=== PATIENT | female | born 1995 | race Two or more races ===

== ENCOUNTER 2017-12-23 16:00 | Emergency (ER) | payer MEDICAID ==
[2017-12-23 16:28] VITALS: BP 128/56
--- NOTE | 2017-12-23 16:40 | EDM.PDOC ---
ED HPI GENERAL MEDICAL PROBLEM - General Chief Complaint: Lower Extremity Injury/Pain Stated Complaint: Calf Pain Time Seen by Provider: 12/23/17 16:13 Source of Information: Reports: Patient, Family, RN, RN Notes Reviewed History Limitations: Reports: No Limitations - History of Present Illness INITIAL COMMENTS - FREE TEXT/NARRATIVE: Patient presents to the ED at [facility] with concerns of a possible blood clot in the right calf. Patient states she started feeling calf pain about 2 days ago. The pain she sharp and stabbing and does not radiate. She is able to walk, but there is some pain. No SOB. No chest pain. Patient has a family history of blood clots. She does not recall any injury or trauma to the leg. 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 Psychiatric History: Reports: Anxiety, Depression Hematologic History: Reports: Anemia - Past Surgical History HEENT Surgical History: Reports: Oral Surgery Social & Family History - Family History Family Medical History: Noncontributory - Tobacco Use Smoking Status *Q: Never Smoker Years of Tobacco use: 3 Packs/Tins Daily: 1 - Recreational Drug Use Recreational Drug Use: No Review of Systems - Review of Systems Review Of Systems: See Below Constitutional: Denies: Chills, Fever, Weakness Respiratory: Denies: Shortness of Breath, Cough Cardiovascular: Denies: Chest Pain, Edema, Palpitations Musculoskeletal: Reports: Muscle Pain, Other (right calf pain) Skin: Reports: No Symptoms Neurological: Denies: Numbness, Paresthesia, Tingling ED EXAM, GENERAL - Physical Exam Exam: See Below Exam Limited By: No Limitations General Appearance: Alert, No Apparent Distress Respiratory/Chest: No Respiratory Distress, Lungs Clear, Normal Breath Sounds Cardiovascular: Normal Peripheral Pulses, Regular Rate, Rhythm, No Edema Peripheral Pulses: 2+: Posterior Tibial (L), Posterior Tibial (R), Dorsalis Pedis (L), Dorsalis Pedis (R) Extremities: No Pedal Edema, Normal Capillary Refill, Leydi's Sign, Other (mild right calf tenderness). No: Limited Range of Motion Neurological: Alert, Oriented Skin Exam: Warm, Dry, Intact, Normal Color Course - Vital Signs Last Recorded V/S: Last Vital Signs Temp 37.3 C 12/23/17 16:05 Pulse 85 12/23/17 16:05 Resp 16 12/23/17 16:05 BP 128/56 L 12/23/17 16:05 Pulse Ox 99 12/23/17 16:05 - Orders/Labs/Meds Labs: Laboratory Tests 12/23/17 Range/Units 16:45 D-Dimer, Quantitative 0.84 H (<=0.58) mg/LFEU Departure - Departure Time of Disposition: 17:07 Disposition: Home, Self-Care 01 Condition: Good Clinical Impression: Right calf pain, Elevated d-dimer - Discharge Information Referrals: Gregg Cotto MD [Primary Care Provider] - Forms: ED Department Discharge, ED Return to Work/School Form Additional Instructions: 1. Stay well hydrated and rest 2. Recommend getting an ultrasound to r/o DVT for sure 3. Patient verbalized understanding 4. Call with any questions/concerns - Problem List Review Problem List Initiated/Reviewed/Updated: Yes - Assessment/Plan Assessment:: Right Calf Pain Elevated D-Dimer Plan: Labs discussed with patient. Recommend the patient needs and ultrasound to r/o DVT since she has an elevated D-dimer. Patient verbalized understanding. She can wait until and have it done here, or she can be seen at another ER that has Ultrasound services.
== END 2017-12-23 17:30 | disposition home or self-care (01) ==
LOC: VM.ED 16:00
DX: M79.661 Pain in right lower leg (principal); R79.1 Abnormal coagulation profile; K21.9 Gastro-esophageal reflux disease without esophagitis; F32.9 Major depressive disorder, single episode, unspecified; F41.9 Anxiety disorder, unspecified; Z88.5 Allergy status to narcotic agent; Z79.899 Other long term (current) drug therapy
CPT/HCPCS: 36415; 85379; 99283

== ENCOUNTER 2019-09-02 18:02 | Emergency (ER) | payer MEDICAID ==
[2019-09-02 18:23] VITALS: BP 135/95; PULSE 97
[2019-09-02] MEDS ORDERED: Take Home: Ondansetron 4 MG Tab.DIS, 2 Tab Pack PO ONE (18:24)
--- NOTE | 2019-09-04 01:31 | EDM.PDOC ---
ED HPI GENERAL MEDICAL PROBLEM - General Chief Complaint: ENT Problem Stated Complaint: THROAT PAIN Time Seen by Provider: 09/02/19 18:34 Source of Information: Reports: Patient History Limitations: Reports: No Limitations - History of Present Illness INITIAL COMMENTS - FREE TEXT/NARRATIVE: Pt. presents to ER with complaints of nausea and vomiting. She underwent tonsillectomy on 08/31/19. She is currently taking oxycodone liquid for the pain. She states that she has been nauseated and has vomited a couple of times. She states that after this, she had increased discomfort in the back of her throat. Denies any active bleeding. No fever or chills. 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 Psychiatric History: Reports: Anxiety, Depression Hematologic History: Reports: Anemia - Past Surgical History HEENT Surgical History: Reports: Oral Surgery, Tonsillectomy Social & Family History - Family History Family Medical History: Noncontributory - Tobacco Use Smoking Status *Q: Never Smoker ED ROS GENERAL - Review of Systems Review Of Systems: See Below Constitutional: Reports: No Symptoms HEENT: Reports: Throat Pain Respiratory: Reports: No Symptoms Cardiovascular: Reports: No Symptoms Endocrine: Reports: No Symptoms GI/Abdominal: Reports: Nausea, Vomiting : Reports: No Symptoms Musculoskeletal: Reports: No Symptoms Skin: Reports: No Symptoms Neurological: Reports: No Symptoms Psychiatric: Reports: No Symptoms Hematologic/Lymphatic: Reports: No Symptoms Immunologic: Reports: No Symptoms ED EXAM, GENERAL - Physical Exam Exam: See Below Exam Limited By: No Limitations General Appearance: Alert, WD/WN, No Apparent Distress Throat/Mouth: Normal Inspection, Normal Oropharynx, Normal Voice, No Airway Compromise, Other (Pt. unable to open mouth to allow visualization of the hypopharynx.) Head: Atraumatic, Normocephalic Respiratory/Chest: No Respiratory Distress, Lungs Clear, Normal Breath Sounds, No Accessory Muscle Use, Chest Non-Tender Cardiovascular: Normal Peripheral Pulses, Regular Rate, Rhythm, No Edema, No Gallop, No JVD, No Rub GI/Abdominal: Normal Bowel Sounds, Soft, Non-Tender, No Organomegaly, No Distention, No Mass Course - Vital Signs Last Recorded V/S: Last Vital Signs Temp 37.5 C 09/02/19 18:16 Pulse 97 09/02/19 18:16 Resp BP 135/95 H 09/02/19 18:16 Pulse Ox 97 09/02/19 18:16 - Orders/Labs/Meds Meds: Medications Discontinued Medications Generic Name Dose Route Start Last Admin Trade Name Tabitha PRN Reason Stop Dose Admin Ondansetron HCl 2 packet 09/02/19 18:24 09/02/19 18:34 Take Home: Ondansetron Odt 4 Mg, 2 Tab Pack PO 09/02/19 18:25 2 packet ONETIME ONE Administration Departure - Departure Time of Disposition: 18:34 Disposition: Home, Self-Care 01 Clinical Impression: Post-operative nausea and vomiting - Discharge Information Instructions: Ondansetron oral dissolving tablet, Tonsillectomy, Adult, Care After Referrals: Gregg Cotto MD [Primary Care Provider] - Forms: ED Department Discharge Additional Instructions: Home to rest Zofran 4mg 1 tab every 6 hours as needed for nausea Take the zofran before you start taking the pain medication again recheck in clinic in 7-10 days Sepsis Event Note - Evaluation Sepsis Screening Result: No Definite Risk - Assessment/Plan Plan: Home to rest Zofran 4mg 1 tab every 6 hours as needed for nausea Take the zofran before you start taking the pain medication again recheck in clinic in 7-10 days
== END 2019-09-02 18:34 | disposition home or self-care (01) ==
LOC: VM.ED 18:02
DX: J95.89 Other postprocedural complications and disorders of respiratory system, not elsewhere classified (principal); R11.2 Nausea with vomiting, unspecified; Z88.5 Allergy status to narcotic agent
CPT/HCPCS: 99283; A9270-GY

== ENCOUNTER 2019-09-03 17:53 | Emergency (ER) | payer MEDICAID ==
[2019-09-03 18:02] VITALS: BP 131/83; PULSE 99
[2019-09-03] MEDS ORDERED: Sodium Chloride 0.9% 1,000 ML IV ONE (18:03)
--- NOTE | 2019-09-03 18:37 | EDM.PDOC ---
ED HPI GENERAL MEDICAL PROBLEM - General Chief Complaint: ENT Problem Time Seen by Provider: 09/03/19 17:55 Source of Information: Reports: Patient, EMS History Limitations: Reports: No Limitations - History of Present Illness INITIAL COMMENTS - FREE TEXT/NARRATIVE: Pt. underwent tonsillectomy on Saturday (08-31-2019) at [facility] in [place] by Dr. Beard. Pt. was at work tonight and developed acute onset of post op bleeding. EMS was summoned. She states that she has been vomiting and feels that she has not been drinking adequately as well. Pt. was able to manage her own airway and is spitting the blood into an emesis bag on arrival to ED. Pt. states that she feels anxious. Denies any shortness of breath or trouble breathing. 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 Psychiatric History: Reports: Anxiety, Depression Hematologic History: Reports: Anemia - Past Surgical History HEENT Surgical History: Reports: Oral Surgery, Tonsillectomy Social & Family History - Family History Family Medical History: Noncontributory - Tobacco Use Smoking Status *Q: Unknown Ever Smoked ED ROS GENERAL - Review of Systems Review Of Systems: See Below Constitutional: Reports: No Symptoms HEENT: Reports: Other (post op tonsillar bleeding) Respiratory: Reports: No Symptoms Cardiovascular: Reports: No Symptoms Endocrine: Reports: No Symptoms GI/Abdominal: Reports: Nausea : Reports: No Symptoms Musculoskeletal: Reports: No Symptoms Skin: Reports: No Symptoms Neurological: Reports: No Symptoms Psychiatric: Reports: Anxiety Hematologic/Lymphatic: Reports: No Symptoms Immunologic: Reports: No Symptoms ED EXAM, GENERAL - Physical Exam Exam: See Below General Appearance: Alert, WD/WN, No Apparent Distress Throat/Mouth: Other (Patient is barely able to open her mouth. I am able to visualize the upper postoperative area but no active bleeding is noted from this area. Pt. appears to be bleeding quite briskly given the amount of bloody saliva she is expectorating. She will not tolerate examination with a mirror of tongue depressor.) Head: Atraumatic, Normocephalic Neck: Normal Inspection, Lymphadenopathy (L), Lymphadenopathy (R), Tender Lateral Respiratory/Chest: No Respiratory Distress, Lungs Clear, Normal Breath Sounds, No Accessory Muscle Use Cardiovascular: Normal Peripheral Pulses, Regular Rate, Rhythm, No Edema, No Gallop, No JVD, No Murmur, No Rub Extremities: Normal Inspection, Normal Range of Motion, Non-Tender Neurological: Alert, Oriented, CN II-XII Intact, No Motor/Sensory Deficits Psychiatric: Anxious Skin Exam: Warm, Dry, Intact, Normal Color Course - Vital Signs Last Recorded V/S: Last Vital Signs Temp 36.9 C 09/03/19 17:53 Pulse 99 09/03/19 17:53 Resp 16 09/03/19 17:53 BP 131/83 09/03/19 17:53 Pulse Ox - Orders/Labs/Meds Orders: Active Orders 24 hr Category Date Time Status COMPREHENSIVE METABOLIC PN,CMP [CHEM] Stat Lab 09/03/19 18:20 Received Sodium Chloride 0.9% [Normal Saline] 1,000 ml Med 09/03/19 18:03 Active IV .BOLUS Medication Orders Sodium Chloride (Normal Saline) 1,000 mls @ 1,000 mls/hr IV .BOLUS ONE Stop: 09/03/19 19:02 Last Admin: 09/03/19 18:08 Dose: 1,000 mls/hr Labs: Laboratory Tests 09/03/19 09/03/19 Range/Units 18:20 18:20 WBC 16.4 H (4.0-10.0) x10^3/uL RBC 5.23 (4.00-5.50) x10^6/uL Hgb 13.3 (12.0-16.0) g/dL Hct 39.9 (33.0-47.0) % MCV 76.3 L (78.0-93.0) fL MCH 25.4 L (26.0-32.0) pg MCHC 33.3 (32.0-36.0) g/dL RDW Coeff of Samra 13.3 (10.0-15.0) % Plt Count 418 H (130-400) x10^3/uL Neut % (Auto) 70.2 (50.0-80.0) % Lymph % (Auto) 22.3 L (25.0-50.0) % Collin % (Auto) 6.7 (2.0-11.0) % Eos % (Auto) 0.5 (0.0-4.0) % Baso % (Auto) 0.3 (0.2-1.2) % PT 10.3 (10.0-12.8) SEC INR 0.9 L (2.0-3.5) Meds: Medications Generic Name Dose Route Start Last Admin Trade Name Freq PRN Reason Stop Dose Admin Sodium Chloride 1,000 mls @ 1,000 mls/hr 09/03/19 18:03 09/03/19 18:08 Normal Saline IV 09/03/19 19:02 1,000 mls/hr .BOLUS ONE Administration Departure - Departure Time of Disposition: 18:40 Disposition: DC/Tfer to [facility] 02 Clinical Impression: Hemorrhage following tonsillectomy - Discharge Information Referrals: Gregg Cotto MD [Primary Care Provider] - Forms: ED Department Discharge, Interfacility Transfer [facility] Sepsis Event Note - Evaluation Sepsis Screening Result: No Definite Risk - Focused Exam Vital Signs: Vital Signs Temp Pulse Resp BP 09/03/19 17:53 36.9 C 99 16 131/83 Date Exam was Performed: 09/03/19 Time Exam was Performed: 18:45 - Problem List Review Problem List Initiated/Reviewed/Updated: Yes - My Orders Last 24 Hours: My Active Orders 09/03/19 18:03 Sodium Chloride 0.9% [Normal Saline] 1,000 ml IV .BOLUS 09/03/19 18:20 COMPREHENSIVE METABOLIC PN,CMP [CHEM] Stat - Assessment/Plan Last 24 Hours: My Active Orders 09/03/19 18:03 Sodium Chloride 0.9% [Normal Saline] 1,000 ml IV .BOLUS 09/03/19 18:20 COMPREHENSIVE METABOLIC PN,CMP [CHEM] Stat Plan: I spoke with our nurse date puller to see if he had access to a fiberoptic laryngoscope which he does not. Subsequently contacted [facility] call in [place] and spoke with Dr. Glynn, the patient's surgeon, who graciously accepted the patient in transfer. She will be kept NPO. Pt. was started on maintenance normal saline. She received IV zofran from paramedics while enroute to the hospital. All questions were answered.
[2019-09-03 18:45] LABS: CHLORIDE,CL 98 mmol/L (98-107); SODIUM,NA 140 mmol/L (136-145)
[2019-09-03 18:49] LABS: ANION GAP 15.4 mmol/L (10-20)
== END 2019-09-03 19:00 | disposition short-term general hospital (02) ==
LOC: VM.ED 17:53
DX: J95.830 Postprocedural hemorrhage of a respiratory system organ or structure following a respiratory system procedure (principal); Z88.5 Allergy status to narcotic agent; Y83.6 Removal of other organ (partial) (total) as the cause of abnormal reaction of the patient, or of later complication, without mention of misadventure at the time of the procedure
CPT/HCPCS: 36415; 80053; 85025; 85610; 96360; 99285-25; J7030

== ENCOUNTER 2020-11-05 11:56 | Emergency (ER) | payer MEDICAID ==
[2020-11-05 12:07] VITALS: BP 146/95; PULSE 89
[2020-11-05] MEDS ORDERED: Ketorolac 30 MG/ML SDV IVPUSH ONE (12:17)
[2020-11-05] MEDS ORDERED: Metoclopramide 10 MG/2 ML SDV IVPUSH ONE (12:17)
[2020-11-05] MEDS ORDERED: Lactated Ringers 1,000 ML IV ONE (12:17)
[2020-11-05] MEDS ORDERED: diphenhydrAMINE 50 MG/ML SDV IVPUSH ONE (12:17)
[2020-11-05] MEDS ORDERED: Sodium Chloride 0.9% 10 ML Syringe FLUSH PRN (12:17)
--- NOTE | 2020-11-05 12:25 | EDM.PDOC ---
ED HPI GENERAL MEDICAL PROBLEM - General Chief Complaint: Gastrointestinal Problem Stated Complaint: headache Time Seen by Provider: 11/05/20 12:10 Source of Information: Reports: Patient History Limitations: Reports: No Limitations - History of Present Illness INITIAL COMMENTS - FREE TEXT/NARRATIVE: Patient comes emergency department today from home with complaints of a headac he. This patient has had a headache from morning until night for the last 6 days. 6 days ago she woke up in the morning with a pounding throbbing sensation throughout the entirety tentorium of her head. This is becoming quite concerning to her as she is typically not a headache or a migraine type person. She has not had headaches in 6 months. Typically she gets a headache when she is not been wearing her glasses. Last night and today she has photophobia phonophobia as well as nausea and vomiting. She has no abdominal pain. No fever no chills. No chest pain no shortness of breath or difficulty breathing. No weakness dizziness lightheadedness. No syncope. No blurred vision or double vision. No peripheral floaters in her vision. No neck pain. No paresthesias of her upper or lower extremities. No change in the functionality of her upper or lower extremities. No recent falls or head trauma. She did not have a thunderclap type headache. She has no neck stiffness or neck pain or neck pain. NO COVID symptoms no COVID exposure. Headache Pain Score (Numeric/FACES): 8 - Related Data Allergies Allergy/AdvReac Type Severity Reaction Status Date / Time codeine Allergy Vomiting Verified 11/05/20 12:11 Home Meds: Home Meds . 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 - Physical Exam Exam: See Below Exam Limited By: No Limitations General Appearance: Alert, WD/WN, No Apparent Distress Eye Exam: Bilateral Eye: EOMI, PERRL Ears: Normal External Exam, Normal TMs Nose: Normal Inspection Throat/Mouth: Normal Inspection, Normal Oropharynx, Normal Voice Head Exam: Atraumatic, Normocephalic Neck: Normal Inspection, Supple, Non-Tender, Full Range of Motion, Other (No nuchal rigidity) Respiratory/Chest: No Respiratory Distress, Lungs Clear, Normal Breath Sounds, No Accessory Muscle Use, Chest Non-Tender Cardiovascular: Normal Peripheral Pulses, Regular Rate, Rhythm GI/Abdominal: Normal Bowel Sounds, Soft, Non-Tender (Female) Exam: Deferred Rectal (Female) Exam: Deferred Neuro Exam (Abbreviated): Alert, Oriented, CN II-XII Intact, Normal Cognition, Normal Gait, Normal Reflexes, No Motor/Sensory Deficits DTR: 2+: Bicep (R), Bicep (L), Patella (R), Patella (L), Achilles (R), Achilles (L) Back Exam: Normal Inspection, Full Range of Motion Extremities: Normal Inspection, Normal Range of Motion, Non-Tender, No Pedal Edema, Normal Capillary Refill Psychiatric: Normal Affect, Normal Mood Skin Exam: Warm, Dry, Intact, Normal Color, No Rash Course - Vital Signs Last Recorded V/S: Last Vital Signs Temp 97.9 F 11/05/20 12:00 Pulse 89 11/05/20 12:00 Resp 14 11/05/20 12:00 BP 146/95 H 11/05/20 12:00 Pulse Ox 98 11/05/20 12:00 - Orders/Labs/Meds Orders: Active Orders 24 hr Category Date Time Status Peripheral IV Insertion Adult [OM.PC] Stat Oth 11/05/20 12:17 Ordered Meds: Medications Discontinued Medications Generic Name Dose Route Start Last Admin Trade Name Tabitha PRN Reason Stop Dose Admin Diphenhydramine HCl 25 mg 11/05/20 12:17 11/05/20 12:30 Diphenhydramine 50 Mg/Ml Sdv IVPUSH 11/05/20 12:18 25 mg ONETIME ONE Administration Lactated Ringer's 1,000 mls @ 999 mls/hr 11/05/20 12:17 11/05/20 12:28 Ringers, Lactated IV 11/05/20 13:17 999 mls/hr ONETIME ONE Administration Ketorolac Tromethamine 30 mg 11/05/20 12:17 11/05/20 12:28 Ketorolac 30 Mg/Ml Sdv IVPUSH 11/05/20 12:18 30 mg ONETIME ONE Administration Metoclopramide HCl 10 mg 11/05/20 12:17 11/05/20 12:32 Metoclopramide 10 Mg/2 Ml Sdv IVPUSH 11/05/20 12:18 10 mg ONETIME ONE Administration Sodium Chloride 10 ml 11/05/20 12:17 Sodium Chloride 0.9% 10 Ml Syringe FLUSH ASDIRECTED PRN Keep Vein Open - Radiology Interpretation Free Text/Narrative:: CT of the head per radiology shows no acute findings normal CT of the head. - Re-Assessments/Exams Free Text/Narrative Re-Assessment/Exam: 11/05/20 12:24 As this patient has worse headache of her life and typically is not a migraine or headache person a CT scan of the head was ordered. IV LR 1 L wide open. Ketorolac 30 mg IV push. Benadryl 25 mg IV push. Reglan [address] normal. After the above therapy the patient had 100% resolution of her complete symptomology presentation. She feels quite a bit better. We will have her go home and rest today decrease stimulation to her brain from lights sounds and irritations. Plenty of fluids. Tylenol for pain. Recheck if any problems she is understanding this and her questions were answered. Departure - Departure Time of Disposition: 13:24 Disposition: Home, Self-Care 01 Clinical Impression: Migraine Qualifiers: Migraine type: unspecified Status migrainosus presence: without status migrainosus Intractability: not intractable Qualified Code(s): G43.909 - Migraine, unspecified, not intractable, without status migrainosus - Discharge Information Instructions: Migraine Headache, [id number], Pain Medicine Instructions, [id number] Referrals: Gregg Cotto MD [Primary Care Provider] - Forms: ED Department Discharge Additional Instructions: Home rest as much as possible. Rest your brain from lights sounds and stimulation. Make sure and drink plenty of fluids over the next few days. Tylenol as needed sparingly for headache. Return to the ED if new or worsening symptoms. Follow up with PCP in the next 4-6 days if any concerns. Sepsis Event Note (ED) - Evaluation Sepsis Screening Result: No Definite Risk - Focused Exam Vital Signs: Vital Signs Temp Pulse Resp BP Pulse Ox 11/05/20 12:00 97.9 F 89 14 146/95 H 98 - My Orders Last 24 Hours: My Active Orders 11/05/20 12:17 Peripheral IV Insertion Adult [OM.PC] Stat - Assessment/Plan Last 24 Hours: My Active Orders 11/05/20 12:17 Peripheral IV Insertion Adult [OM.PC] Stat
--- NOTE | 2020-11-05 13:25 | CT ---
[id number] CT/CT Head WO IV EXAM: CT Head WO IV CLINICAL DATA: WORST HEADACHE EVER. COMPARISON STUDY: None FINDINGS: No intracranial hemorrhage, extra-axial fluid collection, mass, or acute ischemia. No hydrocephalus. Calvarium intact. Mild paranasal sinus mucosal thickening. IMPRESSION: Normal examination of the brain. David Kinney MD 11/05/20 [id number] Thank you for allowing us to participate in the care of your patient.
== END 2020-11-05 13:34 | disposition home or self-care (01) ==
LOC: VM.ED 11:56
DX: G43.909 Migraine, unspecified, not intractable, without status migrainosus (principal); Z88.5 Allergy status to narcotic agent
CPT/HCPCS: 70450; 96374; 96375; 99284; 99284-25; J1200; J1885; J2765; J7120

== ENCOUNTER 2020-11-16 07:30 | Emergency (ER) | payer MEDICAID ==
[2020-11-16] MEDS ORDERED: HYDROmorphone 0.5 MG/0.5 ML Syringe IV ONE ×2 (08:13→10:24)
[2020-11-16] MEDS ORDERED: Lactated Ringers 1,000 ML IV ONE (08:13)
[2020-11-16] MEDS ORDERED: diphenhydrAMINE 50 MG/ML SDV IVPUSH ONE (08:13)
[2020-11-16] MEDS ORDERED: Ondansetron 4 MG/2 ML SDV IV ONE (08:13)
[2020-11-16] MEDS ORDERED: Sodium Chloride 0.9% 10 ML Syringe FLUSH PRN (08:13)
--- NOTE | 2020-11-16 08:19 | EDM.PDOC ---
ED HPI GENERAL MEDICAL PROBLEM - General Chief Complaint: Abdominal Pain Stated Complaint: ABDOMINAL PAIN Time Seen by Provider: 11/16/20 07:45 Source of Information: Reports: Patient History Limitations: Reports: No Limitations - History of Present Illness INITIAL COMMENTS - FREE TEXT/NARRATIVE: Patient comes emergency department today from home with complaints of nausea and abdominal pain. This patient for the past couple of days has been nauseated and vomiting. Last night starting in the middle the night about 3:00 she developed abdominal pain and continued to be nauseated and vomiting. She has been unable to keep anything down at home. She does complain of chills but no documented fever. No chest pain no shortness of breath or difficulty breathing. No cough or congestion. No loss of taste or smell. She has had some loose stools and diarrhea at home. She has generalized abdominal pain throughout her abdomen which waxes and wanes on its own. She does complain of urinary frequency but no dysuria or hematuria. No flank pain. She has had no surgeries on her abdomen in the past. No Covid exposure no Covid symptoms. She did take the morning-after pill yesterday although she threw up immediately following her medication. She was also recently started on medications for migraines as well as hypertension she has tried to take these last 2 days but everything that she eats she throws up. Right Abdomen Pain Score (Numeric/FACES): 9 - Related Data Allergies Allergy/AdvReac Type Severity Reaction Status Date / Time codeine Allergy Vomiting Verified 11/16/20 08:09 Home Meds: Home Meds Acetaminophen/HYDROcodone [Hensel 325-5 MG] 1 tab PO Q6HR PRN #12 tablet 11/16/20 [Rx] Ondansetron [Ondansetron ODT] 4 mg PO Q6H PRN #12 tab.rapdis 11/16/20 [Rx] Past Medical History - Past Health History Medical/Surgical History: Denies Medical/Surgical History Gastrointestinal History: Reports: GERD Genitourinary History: Reports: Other (See Below) Other Genitourinary History: Yeast/vaginal infection 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 ED EXAM, GI/ABD - Physical Exam Exam: See Below Exam Limited By: No Limitations General Appearance: Alert, WD/WN, Obese Eyes: Bilateral: EOMI Ears: Normal External Exam Nose: Normal Inspection Throat/Mouth: No: Normal Inspection (Oral mucosa is dry. ) Head: Atraumatic, Normocephalic Neck: Normal Inspection, Supple, Non-Tender, Full Range of Motion Respiratory/Chest: No Respiratory Distress, Lungs Clear, Normal Breath Sounds, No Accessory Muscle Use, Chest Non-Tender Cardiovascular: Normal Peripheral Pulses, Regular Rate, Rhythm, No Murmur, Tachycardia GI/Abdominal Exam: Normal Bowel Sounds, Soft, Guarding (RUQ and positive murphys sign. ), Tender (Generalized tenderness with referred pain to the RUQ. ). No: Distended, Rigid, Rebound (Female) Exam: Deferred Rectal (Female) Exam: Deferred Back Exam: Normal Inspection. No: CVA Tenderness (L), CVA Tenderness (R) Extremities: Normal Inspection, Normal Range of Motion, Non-Tender, No Pedal Edema, Normal Capillary Refill Neurological: Alert, Oriented, Normal Cognition, No Motor/Sensory Deficits Psychiatric: Normal Affect, Normal Mood Skin Exam: Warm, Dry, Intact, Normal Color, No Rash Lymphatic: No Adenopathy Course - Vital Signs Last Recorded V/S: Last Vital Signs Temp 99.4 F 11/16/20 07:40 Pulse 109 H 11/16/20 07:40 Resp 16 11/16/20 07:40 BP 155/90 H 11/16/20 07:40 Pulse Ox 98 11/16/20 07:40 - Orders/Labs/Meds Orders: Active Orders 24 hr Category Date Time Status Sodium Chloride 0.9% [Saline Flush] Med 11/16/20 08:13 Active 10 ml FLUSH ASDIRECTED PRN Peripheral IV Insertion Adult [OM.PC] Stat Oth 11/16/20 08:12 Ordered Medication Orders Sodium Chloride (Sodium Chloride 0.9% 10 Ml Syringe) 10 ml FLUSH ASDIRECTED PRN PRN Reason: Keep Vein Open Labs: Laboratory Tests 11/16/20 11/16/20 11/16/20 Range/Units 07:58 08:29 08:29 WBC 12.5 H (4.0-10.0) x10^3/uL RBC 5.56 H (4.00-5.50) x10^6/uL Hgb 14.5 (12.0-16.0) g/dL Hct 42.4 (33.0-47.0) % MCV 76.3 L (78.0-93.0) fL MCH 26.1 (26.0-32.0) pg MCHC 34.2 (32.0-36.0) g/dL RDW Coeff of Samra 13.2 (10.0-15.0) % Plt Count 337 D (130-400) x10^3/uL Neut % (Auto) 85.9 H (50.0-80.0) % Lymph % (Auto) 7.3 L (25.0-50.0) % [place] % (Auto) 5.7 (2.0-11.0) % Eos % (Auto) 0.9 (0.0-4.0) % Baso % (Auto) 0.2 (0.2-1.2) % Sodium 141 (136-145) mmol/L Potassium 4.1 (3.5-5.1) mmol/L Chloride 103 (98-107) mmol/L Carbon Dioxide 27 (21-32) mmol/L Anion Gap 15.1 H (5-15) mmol/L BUN 8 (7-18) mg/dL Creatinine 0.8 (0.55-1.02) mg/dL Est Cr Clr Drug Dosing 78.56 mL/min Estimated GFR (MDRD) > 60 Glucose 148 H (74-106) mg/dL Lactic Acid (0.4-2.0) mmol/L Calcium 9.0 (8.5-10.1) mg/dL Corrected Calcium 9.40 (8.5-10.1) mg/dL Magnesium 1.7 L (1.8-2.4) mg/dL Total Bilirubin 0.5 (0.2-1.0) mg/dL AST 12 L (15-37) U/L ALT 33 (14-59) U/L Alkaline Phosphatase 77 (46-116) U/L C-Reactive Protein 2.9 H (<=0.9) mg/dL Total Protein 8.1 (6.4-8.2) g/dL Albumin 3.5 (3.4-5.0) g/dL Globulin 4.6 Albumin/Globulin Ratio 0.76 Lipase 92 (73-393) U/L Urine Color (YELLOW) Urine Appearance (CLEAR) Urine pH (5.0-8.0) Ur Specific [place] Urine Protein (NEGATIVE) mg/dL Urine Glucose (UA) (NEGATIVE) mg/dL Urine Ketones (NEGATIVE) mg/dL Urine Occult Blood (NEGATIVE) Urine Nitrite (NEGATIVE) Urine Bilirubin (NEGATIVE) Urine Urobilinogen (0.2) EU/dL Ur Leukocyte Esterase (NEGATIVE) Urine RBC (NOT SEEN) /HPF Urine WBC (NOT SEEN) /HPF Ur Squamous Epith Cells (NOT SEEN) /HPF Urine Bacteria (NOT SEEN) /HPF Urine Mucus (NOT SEEN) /LPF Urine HCG, Qual (NEGATIVE) SARS CoV-2 RNA Rapid AMISH Negative (NEGATIVE) 11/16/20 11/16/20 11/16/20 Range/Units 08:29 10:06 10:06 WBC (4.0-10.0) x10^3/uL RBC (4.00-5.50) x10^6/uL Hgb (12.0-16.0) g/dL Hct (33.0-47.0) % MCV (78.0-93.0) fL MCH (26.0-32.0) pg MCHC (32.0-36.0) g/dL RDW Coeff of Samra (10.0-15.0) % Plt Count (130-400) x10^3/uL Neut % (Auto) (50.0-80.0) % Lymph % (Auto) (25.0-50.0) % [place] % (Auto) (2.0-11.0) % Eos % (Auto) (0.0-4.0) % Baso % (Auto) (0.2-1.2) % Sodium (136-145) mmol/L Potassium (3.5-5.1) mmol/L Chloride (98-107) mmol/L Carbon Dioxide (21-32) mmol/L Anion Gap (5-15) mmol/L BUN (7-18) mg/dL Creatinine (0.55-1.02) mg/dL Est Cr Clr Drug Dosing mL/min Estimated GFR (MDRD) Glucose (74-106) mg/dL Lactic Acid 2.3 H* (0.4-2.0) mmol/L Calcium (8.5-10.1) mg/dL Corrected Calcium (8.5-10.1) mg/dL Magnesium (1.8-2.4) mg/dL Total Bilirubin (0.2-1.0) mg/dL AST (15-37) U/L ALT (14-59) U/L Alkaline Phosphatase (46-116) U/L C-Reactive Protein (<=0.9) mg/dL Total Protein (6.4-8.2) g/dL Albumin (3.4-5.0) g/dL Globulin Albumin/Globulin Ratio Lipase (73-393) U/L Urine Color Yellow (YELLOW) Urine Appearance Slightly cloudy H (CLEAR) Urine pH 8.5 H (5.0-8.0) Ur Specific [place] 1.020 Urine Protein Trace H (NEGATIVE) mg/dL Urine Glucose (UA) Negative (NEGATIVE) mg/dL Urine Ketones Negative (NEGATIVE) mg/dL Urine Occult Blood Trace-intact H (NEGATIVE) Urine Nitrite Negative (NEGATIVE) Urine Bilirubin Negative (NEGATIVE) Urine Urobilinogen 0.2 (0.2) EU/dL Ur Leukocyte Esterase Negative (NEGATIVE) Urine RBC 0-5 (NOT SEEN) /HPF Urine WBC 0-5 (NOT SEEN) /HPF Ur Squamous Epith Cells Few H (NOT SEEN) /HPF Urine Bacteria Occasional H (NOT SEEN) /HPF Urine Mucus Not seen (NOT SEEN) /LPF Urine HCG, Qual Negative (NEGATIVE) SARS CoV-2 RNA Rapid AMISH (NEGATIVE) Meds: Medications Generic Name Dose Route Start Last Admin Trade Name Freq PRN Reason Stop Dose Admin Sodium Chloride 10 ml 11/16/20 08:13 Sodium Chloride 0.9% 10 Ml Syringe FLUSH ASDIRECTED PRN Keep Vein Open Discontinued Medications Generic Name Dose Route Start Last Admin Trade Name Freq PRN Reason Stop Dose Admin Diphenhydramine HCl 25 mg 11/16/20 08:13 11/16/20 08:22 Diphenhydramine 50 Mg/Ml Sdv IVPUSH 11/16/20 08:14 25 mg ONETIME ONE Administration Hydromorphone HCl 0.5 mg 11/16/20 08:13 11/16/20 08:24 Hydromorphone 0.5 Mg/0.5 Ml Syringe IV 11/16/20 08:14 0.5 mg ONETIME ONE Administration Hydromorphone HCl 0.5 mg 11/16/20 10:24 Hydromorphone 0.5 Mg/0.5 Ml Syringe IV 11/16/20 10:25 ONETIME ONE Lactated Ringer's 1,000 mls @ 999 mls/hr 11/16/20 08:13 11/16/20 08:26 Ringers, Lactated IV 11/16/20 09:13 999 mls/hr ONETIME ONE Administration Iopamidol 100 ml 11/16/20 09:24 11/16/20 09:25 Iopamidol 612 Mg/Ml 100 Ml Bottle IVPUSH 11/16/20 09:25 100 ml ONETIME ONE Administration Ondansetron HCl 4 mg 11/16/20 08:13 11/16/20 08:20 Ondansetron 4 Mg/2 Ml Sdv IV 11/16/20 08:14 4 mg ONETIME ONE Administration - Radiology Interpretation Free Text/Narrative:: CT abdomen pelvis per radiology shows diffusely decreased hepatic density consistent with underlying steatosis correlate with LFTs. Gallbladder common bile duct spleen pancreas adrenal glands and kidneys are unremarkable. - Re-Assessments/Exams Free Text/Narrative Re-Assessment/Exam: 11/16/20 10:35 An IV was established labs are drawn. Patient was given pain and nausea medication with improvement of both symptoms. 11/16/20 10:38 Laboratory evaluation with a CBC with a WBC of 12.5 hemoglobin 14.5 platelets 337. CMP anion gap of 15, glucose 148 normal T bili, AST 12 low, ALT 33 normal, alkaline phosphatase 77. C-reactive protein 2.9. Lipase normal at 92. Urinalysis is unremarkable with a negative leukocyte nitrites small amount of blood. Covid was negative. CT of the abdomen pelvis rather unremarkable other than some chronic findings. Patient's pain was much improved and completely resolved after the administration of a second dose of Dilaudid. Reexamination of the abdomen shows a soft nontender abdomen. Her nausea and vomiting has resolved. She feels quite a bit better. She has been able to keep fluids down in the emergency department. This is most likely the sequelae of biliary colic. CT does not show any acute CT signs of acute cholecystitis. And otherwise normal CT of the abdomen with some chronic findings of ovarian cyst and steatosis of the liver. We will discharge her home at this time with pain and nausea medication and gallbladder diet plan. I will have her get set up for an outpatient gallbladder ultrasound have the results sent to her primary care doctor Dr. Cotto. Discharge instructions as below are explained to the patient she was comfortable with this plan and her questions were answered Departure - Departure Time of Disposition: 10:27 Disposition: Home, Self-Care 01 Clinical Impression: RUQ abdominal pain Nausea & vomiting Qualifiers: Vomiting type: unspecified Vomiting Intractability: non-intractable Qualified Code(s): R11.2 - Nausea with vomiting, unspecified - Discharge Information Instructions: Pain Medicine Instructions, [id number], Nausea and Vomiting, Adult, [id number], Gallbladder Eating Plan Forms: ED Department Discharge, ED Return to Work/School Form Additional Instructions: Home rest today. Slowly advance your diet starting with clear liquids. NOTHING FATTY GREASY as this may make your pain worse. See discharge instruction sheet on gallbladder diet. Tylenol and or Ibuprofen as needed for pain. Zofran 1 tablet every 6 hrs as needed for nausea. RX sent to [facility]. If pain not controlled with above. Hensel 1 tablet every 6 hrs with food as neede d for pain. Caution sedation. DO not take tylenol with this medication as Hensel has tylenol in it. No drinking alcohol or driving after taking. RX sent to [facility]. Return to the ED if new or worsening symptoms. [facility] will call you with follow appointment for an Ultrasound of your gallbladder. Contact them tomorrow if you have not heard from them. Follow up with Dr. Brooks from [facility] following your ultrasound make appointment at the time you make your ultrasound appointment. Sepsis Event Note (ED) - Evaluation Sepsis Screening Result: No Definite Risk - Focused Exam Vital Signs: Vital Signs Temp Pulse Resp BP Pulse Ox 11/16/20 07:40 99.4 F 109 H 16 155/90 H 98 - My Orders Last 24 Hours: My Active Orders 11/16/20 08:12 Peripheral IV Insertion Adult [OM.PC] Stat 11/16/20 08:13 Sodium Chloride 0.9% [Saline Flush] 10 ml FLUSH ASDIRECTED PRN - Assessment/Plan Last 24 Hours: My Active Orders 11/16/20 08:12 Peripheral IV Insertion Adult [OM.PC] Stat 11/16/20 08:13 Sodium Chloride 0.9% [Saline Flush] 10 ml FLUSH ASDIRECTED PRN
[2020-11-16 08:54] LABS: CHLORIDE,CL 103 mmol/L (98-107); SODIUM,NA 141 mmol/L (136-145)
[2020-11-16 08:55] LABS: ANION GAP 15.1 mmol/L (5-15)
[2020-11-16] MEDS ORDERED: Iopamidol 612 MG/ML 100 ML Bottle IVPUSH ONE (09:24)
--- NOTE | 2020-11-16 09:53 | CT ---
[id number] CT/CT Abdomen Pelvis W IV EXAM: CT Abdomen Pelvis W IV CLINICAL DATA: RIGHT UPPER QUADRANT PAIN,NAUSEA,VOMITTING. COMPARISON STUDY: None. FINDINGS: Lung bases are clear. Liver demonstrates diffusely decreased density consistent with steatosis. No focal lesion or biliary ductal dilation. Portal vein is normal in caliber and patent. Gallbladder, common bile duct, spleen, pancreas, adrenal glands, and kidneys are unremarkable. No bowel obstruction or inflammation. Small fat-containing umbilical hernia. Appendix is normal. No lymphadenopathy, free fluid, or pneumoperitoneum. 31 x 22 x 24 mm left ovarian cyst. 19 x 24 x 18 mm right ovarian cyst. Nabothian cyst in the cervix. Uterus is otherwise unremarkable. Urinary bladder is unremarkable. Spondylosis. No acute fracture or compression deformity. IMPRESSION: Diffusely decreased hepatic density consistent with underlying steatosis. Correlate with LFTs. Other findings are described above. David Kinney MD 11/16/20 [id number] Thank you for allowing us to participate in the care of your patient.
[2020-11-16 12:03] VITALS: BP 161/80; PULSE 105
== END 2020-11-16 10:50 | disposition home or self-care (01) ==
LOC: VM.ED 07:30
DX: R11.2 Nausea with vomiting, unspecified (principal); R10.11 Right upper quadrant pain; R19.7 Diarrhea, unspecified; R35.0 Frequency of micturition; Z88.5 Allergy status to narcotic agent; Z20.822 Contact with and (suspected) exposure to COVID-19
CPT/HCPCS: 36415; 74177; 80053; 81001; 81025; 83605; 83690; 83735; 85025; 86140; 96374; 96375; 96376; 99284; 99285-25; J1170; J1200; J2405; J7120; Q9967; U0002